=== PATIENT | female | born 1980 | race Caucasian/White ===

== ENCOUNTER 2023-10-28 16:34 | Outpatient (CLI) | payer OTHER, SELFPAY | END 2023-10-28 16:35 | disposition home or self-care (01) | LOC: LKVREF 16:37 | PROVIDERS: PCP Physician Assistant Medical; Visit Provider Physician Assistant Medical | DX: I16.0 Hypertensive urgency (principal); E11.9 Type 2 diabetes mellitus without complications | CPT/HCPCS: 84443; 87086 ==

== ENCOUNTER 2023-11-18 14:32 | Outpatient (CLI) | payer OTHER, SELFPAY | END 2023-11-18 14:33 | disposition home or self-care (01) | LOC: RAD 14:33 | PROVIDERS: PCP Physician Assistant Medical; Visit Provider Physician Assistant Medical | DX: I10 Essential (primary) hypertension (principal); I51.7 Cardiomegaly | CPT/HCPCS: 93306 ==

== ENCOUNTER 2024-05-20 07:54 | Outpatient (CLI) | payer OTHER, SELFPAY | END 2024-05-20 07:55 | disposition home or self-care (01) | PROVIDERS: PCP Physician Assistant Medical; Visit Provider Physician Assistant Medical | DX: E11.9 Type 2 diabetes mellitus without complications (principal); I10 Essential (primary) hypertension; E66.01 Morbid (severe) obesity due to excess calories; Z68.43 Body mass index [BMI] 50.0-59.9, adult | CPT/HCPCS: 80061; 82043; 82570; 82607 ==

== ENCOUNTER 2024-08-24 15:57 | Outpatient (CLI) | payer OTHER, SELFPAY | END 2024-08-24 15:58 | disposition home or self-care (01) | PROVIDERS: PCP Physician Assistant Medical; Visit Provider Physician Assistant Medical | DX: I10 Essential (primary) hypertension (principal); E11.9 Type 2 diabetes mellitus without complications; E66.01 Morbid (severe) obesity due to excess calories; Z68.43 Body mass index [BMI] 50.0-59.9, adult | CPT/HCPCS: 80048; 82043; 82570 ==

== ENCOUNTER 2025-04-12 13:42 | Outpatient (CLI) | payer OTHER, SELFPAY ==
--- NOTE | 2025-04-12 14:00 | CRLHL7_ITS ---
For Patients: As a result of the Century Cures Act, medical imaging exams and procedure reports are released immediately into your electronic medical record. You may view this report before your referring provider. If you have questions, please contact your health care provider. BILATERAL DIGITAL SCREENING MAMMOGRAM WITH COMPUTER-AIDED DETECTION AND TOMOSYNTHESIS CLINICAL HISTORY: : Routine screening exam. COMPARISON: None TECHNIQUE: Digital mammogram in CC and MLO projections including computer-aided detection (CAD). Tomosynthesis was used in this interpretation. BREAST COMPOSITION: There are scattered areas of fibroglandular density. FINDINGS: RIGHT Breast: No suspicious findings LEFT Breast: Focal nodular density in the upper-outer quadrant behind the nipple 2 cm from the nipple. IMPRESSION: LEFT breast asymmetry/mass. RECOMMENDATIONS: Left breast ultrasound recommended. The [facility] will contact the patient. BI-RADS Category 0: Incomplete: Need Additional Imaging Evaluation Dictated by Aníbal Almanza MD @ 04/13/2025 12:01:40 PM Dictated by: Aníbal Almanza MD @ 04/13/2025 12:01:45 (Electronically Signed)
== END 2025-04-12 13:43 | disposition home or self-care (01) ==
LOC: MAMMO 13:43
PROVIDERS: PCP Physician Assistant Medical; Visit Provider Physician Assistant Medical
DX: Z12.31 Encounter for screening mammogram for malignant neoplasm of breast (principal); N63.10 Unspecified lump in the right breast, unspecified quadrant
CPT/HCPCS: 77063; 77067

== ENCOUNTER 2025-04-16 07:57 | Outpatient (CLI) | payer OTHER, SELFPAY ==
--- NOTE | 2025-04-16 08:15 | CRLHL7_ITS ---
For Patients: As a result of the Cures Act, medical imaging exams and procedure reports are released immediately into your electronic medical record. You may view this report before your referring provider. If you have questions, please contact your health care provider. LEFT BREAST ULTRASOUND CLINICAL HISTORY: LEFT breast mass/asymmetry. COMPARISON: 04/12/2025. TECHNIQUE: Real-time ultrasound imaging of LEFT breast with imaging documentation. FINDINGS: Targeted sonogram LEFT breast upper outer quadrant 2-3 o`clock 2 cm from the nipple corresponding to the mammogram performed. Normal fibroglandular tissue is present. No solid mass or shadowing lesion. No fibrocystic change. Mild incidental benign multi duct ectasia. IMPRESSION: No suspicious findings. No evidence of malignancy. RECOMMENDATIONS: Routine screening mammography. A lay language report of this examination will be provided to the patient. BI-RADS Category 2: Benign Dictated by Aníbal Almanza MD @ 04/16/2025 8:38:14 AM jj/Dictated by: Aníbal Almanza MD @ 04/16/2025 8:38:00 AM (Electronically Signed)
--- OUTSIDE RECORDS SUMMARY | 2025-04-17 00:29 | XMS_ITS | Encounter Summary ---
Author Organization [facility] Address [address] [place] [address]. [place] [address] Care Team Providers Care Hoop Bending Machine Operator Name Role Phone Kodak Muro PA-C Primary Care Provider [phone] Kodak Muro-C Unavailable [phone] Kodak Muro-C Unavailable [phone] Sobia Sahu APRN HOT BRAIDER Unavailable [phone] Kodak Muro PA-C Unavailable [phone] Sobia Sahu APRN HOT BRAIDER Unavailable [phone] Paloma Lindsay PA-C Unavailable Kodak Muro PA-C Unavailable [phone] Kodak Muro PA-C Unavailable [phone] Reason for Visit * Reason Onset Date Comments Erroneous encounter-disregard 06/04/2017 li sinopril (PRINIVIL/ZESTRIL) 10 MG tablet Encounter Details Date Type Department Care Team (Late st Contact Info) Description 06/04/2017 [place] [id number] [facility], [address] [place] [address] Kodak Muro PA-C [address] [place] [address] Erroneous encounter-disregard (lisinopril (PRINIVIL/ZESTRIL) 10 MG tablet) Social History Tobacco Use Types Packs/Day Years Used Date Smoking Tobacco: Former Cigarettes Q uit: 02/28/2000 Smokeless Tobacco: Never Alcohol Use Standard Drinks/Week Comments Yes 0 (1 standard drink = 0.6 oz pur e alcohol) rare Comments No Sex and Gender Information Value Date Recorded Sex Assigned at Female 03/28/2021 1:15 PM CDT Legal Sex Female 4:46 AM CUSTOMER SUPPORT TECHNICIAN Gender Identity Female 03/28/2021 1:15 PM CDT Sexual Orientation Straight 03/28/2021 1: 15 PM CDT documented as of this encounter Miscellaneous Notes * Telephone Encounter - Valeri Hammer - 06/04/2017 10:41 AM CDT 3 month Supply with 1 RF sent 05/10/17. lisinopril (PRINIVIL/ZESTRIL) 10 MG tablet Last Written Prescription Date: 05/10/17 Last Fill Quantity: 90, # refills: 1 Last Office Visit with [facility], [facility] or [facility] prescribing provider: 05/10/2017 Fax sent to pharm informing above. Please disregard request. Valeri Hammer, XRR[facility] June 04, 2017 10:43 AM documented in this encounter Plan of Treatment Not on file documented as of this encounter Visit Diagnoses Diagnosis Essential hypertension Unspecified essential hypertension documented in this encounter Care Teams Hoop Bending Machine Operator Relationship Specialty Start Date End Date Kodak Muro PA-C PCP - General Physician Client Care Manager - Medical 02/20/16 Kodak Muro PA-C [address] [address] PCP - Assigned PCP 01/30/15 12/23/18 Kodak Muro PA-C [address] [address] Assigned PCP 01/30/15 02/14/19 Sobia Sahu APRN HOT BRAIDER [address] [place] [address] Assigned PCP 02/15/19 02/13/20 Kodak Muro PA-C [address] [place] [address] Assigned PCP 02/14/20 02/11/21 Sobia Sahu APRN HOT BRAIDER [address] [place] [address] Assigned PCP 02/12/21 02/10/22 Paloma Lindsay PA-C [address] [place] [address] Assigned Surgical Provider 04/02/21 09/28/22 Kodak Muro PA-C [address] [place] [address] Assigned PCP 02/11/22 10/05/22 Kodak Muro PA-C [address] [place] [address] Assigned PCP 12/15/22 02/10/23 documented as of this encounter
--- OUTSIDE RECORDS SUMMARY | 2025-04-17 00:29 | XMS_ITS | Encounter Summary ---
Author Organization [facility] Address [address] [place] [address]. [place] [address] Care Team Providers Care Plate Furnace Operator Name Role Phone Kodak Muro PA-C Primary Care Provider [phone] Sobia Sahu APRN INSIGHT LEADER Unavailable [phone] Kodak Muro PA-C Unavailable [phone] Sobia Sahu APRN INSIGHT LEADER Unavailable [phone] Paloma LindsayC Unavailable [phone] Kodak Muro PA-C Unavailable [phone] Kodak MuroC Unavailable [phone] Reason for Visit * Reason Onset Date Comments Medication Refill 04/13/2019 phentermine (A DIPEX-P) 37.5 MG capsule Encounter Details Date Type Department Care Team (Late st Contact Info) Description 04/11/[address], [address] [place] [address] Sobia Sahu APRN INSIGHT LEADER [address] [place] [address] Medication Refill (phentermine (ADIPEX-P) 37.5 MG capsule) Social History Tobacco Use Types Packs/Day Years Used Date Smoking Tobacco: Former Cigarettes Q uit: 02/28/2000 Smokeless Tobacco: Never Alcohol Use Standard Drinks/Week Comments Yes 0 (1 standard drink = 0.6 oz pur e alcohol) rare PHQ-2 Answer Date Recorded PHQ-2 Score 0 10/29/2018 Comments No Sex and Gender Information Value Date Recorded Sex Assigned at Female 03/28/2021 1:15 PM CDT Legal Sex Female 4:46 AM PET SUPPLIES SALESPERSON Gender Identity Female 03/28/2021 1:15 PM CDT Sexual Orientation Straight 03/28/2021 1: 15 PM CDT documented as of this encounter Miscellaneous Notes * Telephone Encounter - Caridad Figueroa MA - 04/13/2019 10:27 AM CDT Rx faxed to [facility] pharmacy [place]. Rx placed in box at Nurses station. Caridad Figueroa MA * Telephone Encounter - Sobia Sahu APRN CNP - 04/13/2019 8:43 AM CDT Rx signed and in my outbasket. Sobia Sahu CNP * Telephone Encounter - Valeri Hammer - 04/13/2019 8:30 AM CDT Images from the original note were not included. phentermine (ADIPEX-P) 37.5 MG capsule Last Written Prescription Date: 03/09/19 Last Fill Quantity: 30, # refills: 0 Last Office Visit with [facility], [facility] or [facility] prescribing provider: 03/09/2019 Strong Return in about 3 months (around 06/09/2019) for weight loss . Future Office visit: Wt Readings from Last 3 Encounters: 03/09/19 142.4 kg (314 lb) 02/09/19 145.6 kg (320 lb 14.4 oz) 05/10/17 134.3 kg (296 lb) BP Readings from Last 3 Encounters: 03/09/19 116/84 02/09/19 142/80 05/10/17 134/80 Routing refill request to provider for review/approval because: Drug not on the [facility], [facility] or [facility] refill protocol or controlled substance CHUCK Jones April 13, 2019 8:30 AM documented in this encounter Plan of Treatment Not on file documented as of this encounter Visit Diagnoses Diagnosis Morbid obesity, unspecified obesity type (H) documented in this encounter Care Teams Plate Furnace Operator Relationship Specialty Start Date End Date Kodak Muro PA-C PCP - General Physician Digestion Operator - Medical 02/20/16 Sobia Sahu APRN INSIGHT LEADER [address] [place] [address] Assigned PCP 02/15/19 02/13/20 Kodak Muro PA-C [address] [address] Assigned PCP 02/14/20 02/11/21 Sobia Sahu APRN INSIGHT LEADER [address] [address] Assigned PCP 02/12/21 02/10/22 Paloma Lindsay PA-C [address] [place] [address] Assigned Surgical Provider 04/02/21 09/28/22 Kodak Muro PA-C [address] [address] Assigned PCP 02/11/22 10/05/22 Kodak Muro PA-C [address] [address] Assigned PCP 12/15/22 02/10/23 documented as of this encounter
--- OUTSIDE RECORDS SUMMARY | 2025-04-17 00:29 | XMS_ITS | Encounter Summary ---
Author Organization [facility] Address [address] [place] [address] Care Team Providers Care Hotbed Lever Operator Name Role Phone Kodak Muro PA-C Primary Care Provider [phone] Kodak Muro PA-C Unavailable + Kun Murois PA-C Unavailable + Sobia Sahu APRN COMPUTER PROGRAMMER CHIEF Unavailable + Kodak Muro PA-C Unavailable + Sobia Sahu APRN COMPUTER PROGRAMMER CHIEF Unavailable + Paloma Lindsay PA-C Unavailable [phone] Kodak Muro PA-C Unavailable + Bhaskar Kodak PA-C Unavailable + Reason for Visit * Reason Comments Ultrasound twins, di di Encounter Details Date Type Department Care Team (Late st Contact Info) Description 10/16/[address] 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 Gender Identity Female 03/28/2021 1:15 PM CDT Sexual Orientation Straight 03/28/2021 1: 15 PM CDT documented as of this encounter Plan of Treatment Not on file documented as of this encounter Visit Diagnoses Not on filedocumented in this encounter Care Teams Hotbed Lever Operator Relationship Specialty Start Date End Date Kodak Muro PA-C PCP - General Physician Aircraft Cylinder Mechanic - Medical 02/20/16 Kodak Muro PA-C [address] [place] [address] PCP - Assigned PCP 01/30/15 12/23/18 Kodak Muro PA-C [address] [place] [address] Assigned PCP 01/30/15 02/14/19 Sobia Sahu APRN COMPUTER PROGRAMMER CHIEF [address] [place] [address] Assigned PCP 02/15/19 02/13/20 Kodak Muro PA-C [address] [place] [address] Assigned PCP 02/14/20 02/11/21 Sobia Sahu APRN COMPUTER PROGRAMMER CHIEF [address] [place] [address] Assigned PCP 02/12/21 02/10/22 Paloma Lindsay PA-C [address] [address] Assigned Surgical Provider 04/02/21 09/28/22 Kodak Muro PA-C [address] [address] Assigned PCP 02/11/22 10/05/22 Kodak Muro PA-C [address] [address] Assigned PCP 12/15/22 02/10/23 documented as of this encounter
--- OUTSIDE RECORDS SUMMARY | 2025-04-17 00:29 | XMS_ITS | Encounter Summary ---
Author Organization [facility] Address [address] [place] [address] Care Team Providers Care Hospital Administrator Name Role Phone Kodak Muro PA-C Primary Care Provider [phone] Kodak Muro PA-C Unavailable [phone] Kodak Muro PA-C Unavailable [phone] Sobia Sahu APRN FUSING FURNACE LOADER Unavailable + [phone] Kun Murois PA-C Unavailable [phone] Sobia Sahu APRN FUSING FURNACE LOADER Unavailable + Paloma Lindsay PA-C Unavailable [phone] Kun Murois PA-C Unavailable [phone] Kun Murois PA-C Unavailable [phone] Encounter Details Date Type Department Care Team (Late st Contact Info) Description 04/09/2017 MyC Medical Advice [facility] [id number] [place] [address], [address] [place] [address] Caridad Figueroa MA Social History Tobacco Use Types Packs/Day Years Used Date Smoking Tobacco: Former Cigarettes Q uit: 02/28/2000 Smokeless Tobacco: Never Alcohol Use Standard Drinks/Week Comments Yes 0 (1 standard drink = 0.6 oz pur e alcohol) rare Comments No Sex and Gender Information Value Date Recorded Sex Assigned at Female 03/28/2021 1:15 PM CDT Legal Sex Female 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 AIDE Gender Identity Female 03/28/2021 1:15 PM CDT Sexual Orientation Straight 03/28/2021 1: 15 PM CDT documented as of this encounter Plan of Treatment Not on file documented as of this encounter Visit Diagnoses Not on filedocumented in this encounter Care Teams Hospital Administrator Relationship Specialty Start Date End Date Kodak Muro PA-C PCP - General Physician Press And Blow Machine Tender - Medical 02/20/16 Kodak Muro PA-C [address] [place] [address] PCP - Assigned PCP 01/30/15 12/23/18 Kodak Muro PA-C [address] [place] [address] Assigned PCP 01/30/15 02/14/19 Sobia Sahu APRN FUSING FURNACE LOADER [address] [place] [address] Assigned PCP 02/15/19 02/13/20 Kodak Muro PA-C [address] [place] [address] Assigned PCP 02/14/20 02/11/21 Sobia Sahu APRN FUSING FURNACE LOADER [address] [place], [place] [address] Assigned PCP 02/12/21 02/10/22 Paloma Lindsay PA-C [address] [place] [address] Assigned Surgical Provider 04/02/21 09/28/22 Kodak Muro PA-C [address] [address] Assigned PCP 02/11/22 10/05/22 Kodak Muro PA-C [address] [address] Assigned PCP 12/15/22 02/10/23 documented as of this encounter
--- OUTSIDE RECORDS SUMMARY | 2025-04-17 00:29 | XMS_ITS | Encounter Summary ---
Author Organization [facility] Address [address] [place] [address]. [place] [address] Care Team Providers Care Baked Goods Stock Clerk Name Role Phone Kodak Muro PA-C Primary Care Provider [phone] Sobia Sahu APRN RAW PRODUCTS DIRECTOR Unavailable [phone] Kodak Muro PA-C Unavailable [phone] Sobia Sahu APRN RAW PRODUCTS DIRECTOR Unavailable [phone] Paloma LindsayC Unavailable [phone] Kodak Muro PA-C Unavailable [phone] Kodak MuroC Unavailable [phone] Reason for Visit * Reason Onset Date Comments Medication Refill 05/14/2019 phentermine (A DIPEX-P) 37.5 MG capsule Encounter Details Date Type Department Care Team (Late st Contact Info) Description 05/14/[address], [address] [place] [address] Sobia Sahu APRN RAW PRODUCTS DIRECTOR [address] [place] [address] Medication Refill (phentermine (ADIPEX-P) 37.5 [...] PM CDT Legal Sex Female 4:46 AM SOLDER CREAM MAKER Gender Identity Female 03/28/2021 1:15 PM CDT Sexual Orientation Straight 03/28/2021 1: 15 PM CDT documented as of this encounter Miscellaneous Notes * Telephone Encounter - Chinyere Mays CMA - 05/15/2019 11:56 AM CDT Called patient to let her know that her Rx was faxed to her pharmacy. Chinyere Mays MA * Telephone Encounter - Sobia Sahu APRN CNP - 05/15/2019 8:08 AM CDT Please fax Rx. Sobia Sahu CNP * Telephone Encounter - Valeri Hammer - 05/14/2019 1:26 PM CDT Images from the original note were not included. phentermine (ADIPEX-P) 37.5 MG capsule Last Written Prescription Date: 04/13/19 Last Fill Quantity: 30, # refills: 0 Last Office Visit with [facility], P or [facility] prescribing provider: 03/09/2019 Strong Return in about 3 months (around 06/09/2019) for weight loss . Future Office visit: Next 5 appointments (look out 90 days) Jun 01, 2019 10:00 AM CDT SHORT with Sobia Sahu APRN CNP [facility] [address] [place] [address], [address] [facility] [address] Wt Readings from Last 3 Encounters: 03/09/19 142.4 kg (314 lb) 02/09/19 145.6 kg (320 lb 14.4 oz) 07/21/17 134.3 kg (296 lb) BP Readings from Last 3 Encounters: 03/09/19 116/84 02/09/19 142/80 05/10/17 134/80 Routing refill request to provider for review/approval because: Drug not on the [facility], [facility] or [facility] refill protocol or controlled substance CHUCK Jones May 14, 2019 1:26 PM documented in this encounter Plan of Treatment Not on file documented as of this encounter Visit Diagnoses Diagnosis Morbid obesity, unspecified obesity type (H) documented in this encounter Care Teams Baked Goods Stock Clerk Relationship Specialty Start Date End Date Kodak Muro PA-C PCP - General Physician Manager Ecommerce - Medical 02/20/16 Sobia Sahu APRN RAW PRODUCTS DIRECTOR [address] [address] Assigned PCP 02/15/19 02/13/20 Kodak Muro PA-C [address] [address] Assigned PCP 02/14/20 02/11/21 Sobia Sahu APRN RAW PRODUCTS DIRECTOR [address] [address] Assigned PCP 02/12/21 02/10/22 Paloma Lindsay PA-C [address] [place] [address] Assigned Surgical Provider 04/02/21 09/28/22 Kodak Muro PA-C [address] [address] Assigned PCP 02/11/22 10/05/22 Kodak Muro PA-C [address] [address] Assigned PCP 12/15/22 02/10/23 documented as of this encounter
--- OUTSIDE RECORDS SUMMARY | 2025-04-17 00:29 | XMS_ITS | Encounter Summary ---
Author Organization [facility] Address [address] [place] [address] Care Team Providers Care Atmospheric Technician Name Role Phone Kodak Muro PA-C Primary Care Provider [phone] Kodak Muro PA-C Unavailable + Kodak Muro PA-C Unavailable + Sobia Sahu APRN RACK LOADER Unavailable + Kodak Muro PA-C Unavailable + Sobia Sahu APRN RACK LOADER Unavailable + Paloma Lindsay PA-C Unavailable [phone] Kodak Muro PA-C Unavailable + Kodak Muro PA-C Unavailable + Encounter Details Date Type Department Care Team (Late st Contact Info) Description 08/21/2012 MyC Medical Advice [address] [address] Radha Chavira MD [address] [place] [address] Social History Tobacco Use Types Packs/Day Years Used Date Smoking Tobacco: Former Cigarettes Q uit: 02/28/2000 Smokeless Tobacco: Never Alcohol Use Standard Drinks/Week Comments Yes 0 (1 standard drink = 0.6 oz pur e alcohol) rare Comments No Sex and Gender Information Value Date Recorded Sex Assigned at Female 03/28/2021 1:15 PM CDT Legal Sex Female 4:46 AM AUTO MECHANICS TEACHER Gender Identity Female 03/28/2021 1:15 PM CDT Sexual Orientation Straight 03/28/2021 1: 15 PM CDT documented as of this encounter Plan of Treatment Not on file documented as of this encounter Visit Diagnoses Not on filedocumented in this encounter Care Teams Atmospheric Technician Relationship Specialty Start Date End Date Kodak Muro PA-C PCP - General Physician Cardiology Nurse Practitioner - Medical 02/20/16 Kodak Muro PA-C [address] [place] [address] PCP - Assigned PCP 01/30/15 12/23/18 Kodak Muro PA-C [address] [place] [address] Assigned PCP 01/30/15 02/14/19 Sobia Sahu APRN RACK LOADER [address] [place] [address] Assigned PCP 02/15/19 02/13/20 Kodak Muro PA-C [address] [place] [address] Assigned PCP 02/14/20 02/11/21 Sobia Sahu APRN RACK LOADER [address] [place] [address] Assigned PCP 02/12/21 02/10/22 Paloma Lindsay PA-C [address] [place] [address] Assigned Surgical Provider 04/02/21 09/28/22 Kodak Muro PA-C [address] [address] Assigned PCP 02/11/22 10/05/22 Kodak Muro PA-C [address] [address] Assigned PCP 12/15/22 02/10/23 documented as of this encounter
--- OUTSIDE RECORDS SUMMARY | 2025-04-17 00:30 | XMS_ITS | Encounter Summary ---
Author Organization [facility] Address [address] [place] [address] Care Team Providers Care Software Applications Designer Name Role Phone Kodak Muro PA-C Primary Care Provider [phone] Kodak Muro-C Unavailable [phone] Sobia Sahu APRN SPARE PERSON Unavailable [phone] Paloma Lindsay PA-C Unavailable [phone] Kodak Muro PA-C Unavailable [phone] Kodak Muro PA-C Unavailable [phone] Encounter Details Date Type Department Care Team (Late st Contact Info) Description 12/05/2020 MyC Medical Advice [address] [address] Marybeth Antony Social History Tobacco Use Types Packs/Day Years Used Date Smoking Tobacco: Former Cigarettes Q uit: 02/28/2000 Smokeless Tobacco: Never Alcohol Use Standard Drinks/Week Comments Not Currently 0 (1 standard drink = 0.6 oz pur e alcohol) rare PHQ-2 Answer Date Recorded PHQ-2 Score 0 02/11/2020 Comments No Sex and Gender Information Value Date Recorded Sex Assigned at Female 03/28/2021 1:15 PM CDT Legal Sex Female 4:46 AM ROTATIONAL MOULDING OPERATOR Gender Identity Female 03/28/2021 1:15 PM CDT Sexual Orientation Straight 03/28/2021 1: 15 PM CDT documented as of this encounter Plan of Treatment Not on file documented as of this encounter Visit Diagnoses Not on filedocumented in this encounter Care Teams Software Applications Designer Relationship Specialty Start Date End Date Kodak Muro PA-C PCP - General Physician Tool Grinding Technician - Medical 02/20/16 Kodak Muro PA-C [address] [address] Assigned PCP 02/14/20 02/11/21 Sobia Sahu APRN CNP [address] [address] Assigned PCP 02/12/21 02/10/22 Paloma Lindsay PA-C [address] [place] [address] Assigned Surgical Provider 04/02/21 09/28/22 Kodak Muro PA-C [address] [address] Assigned PCP 02/11/22 10/05/22 Kodak Muro PA-C [address] [address] Assigned PCP 12/15/22 02/10/23 documented as of this encounter
--- OUTSIDE RECORDS SUMMARY | 2025-04-17 00:30 | XMS_ITS | Clinical Summary ---
Author Organization [facility] Address [address] [place] [address] Care Team Providers Care Accountant Systems Name Role Phone Kodak Muro PA-C Primary Care Provider [phone] Allergies Active Allergy Reactions Criticality Noted Date Comments Hydrocodone-Acetaminophen 02/27/2007 Black out, migraine Medications Multiple Vitamins-Mineral s (WOMENS MULTI PO) Take 1 tablet by mouth daily Active lisinopril (ZESTRIL) 10 MG tabletIndication s:Essential hypertension Take 1 tablet (10 mg) by mouth daily APPOINTMENT AND LABS NEEDED- PLEASE CALL CLINIC TO SCHEDULE 15 tablet 1 Active Active Problems Problem Noted Date Diagnosed Date Essential hypertension 06/28/2017 Morbid obesity, unspecified obesity type 017 Elevated blood pressure read ing without diagnosis of hypertension 02/20/2016 Hyperlipidemia LDL goal <160 08/16/2012 Immunizations Immunization Administration Dates Next Due Hepatitis B, Adult (Energix- B/Recombivax HB) 09/04/2006,08/28/2005 Influenza (H1N1) 09/12/2009 Influenza (IIV3) PF 07/07/2014,08/16/2012,2009 Influenza Vaccine >6 months,quad, PF 08/30/2019 Influenza Vaccine, 6+MO IM ( QUADRIVALENT W/PRESERVATIVES) 08/30/2019 Rhogam 10/06/2011 TD,PF 7+ (Tenivac) 08/28/2005 TDAP Vaccine (Adacel) 10/05/2011,08/17/2010 Family History Medical History Relation Comments Family History Negative Brother Deep Vein Thrombosis Father Family History Negative Father Family History Negative Maternal Grandfather Obesity Maternal Grandfather Family History Negative Maternal Grandmother Family History Negative Mother Family History Negative Paternal Grandfather Family History Negative Paternal Grandmother Obesity Paternal Grandmother Breast Cancer No family hx of Cancer - colorectal No family hx of Relation Status Comments Brother Father Maternal Grandfather Maternal Grandmother Mother Paternal Grandfather Paternal Grandmother Social History Tobacco Use Types Packs/Day Years Used Date Smoking Tobacco: Former Cigarettes Q uit: 02/28/2000 Smokeless Tobacco: Never Alcohol Use Standard Drinks/Week Comments Not Currently 0 (1 standard drink = 0.6 oz pur e alcohol) rare PHQ-2 Answer Date Recorded PHQ-2 Score 0 02/11/2020 Adolescent Education Answer Date Record ed Getting School Help Needed Not on file 08/06 Comments No Sex and Gender Information Value Date Recorded Sex Assigned at Female 03/28/2021 1:15 PM CDT Legal Sex Female 4:46 AM LEAD PROGRAMMER ANALYST Gender Identity Female 03/28/2021 1:15 PM CDT Sexual Orientation Straight 03/28/2021 1: 15 PM CDT Last Filed Vital Signs Vital Sign Reading Time Taken Comments Blood Pressure 126/88 09/29/2019 3:44 PM LEAD PROGRAMMER ANALYST Pulse 80 09/29/2019 3:44 PM LEAD PROGRAMMER ANALYST Temperature 36.7 C (98 F) 09/29/2019 3:44 PM LEAD PROGRAMMER ANALYST Respiratory Rate 20 09/29/2019 3:44 PM LEAD PROGRAMMER ANALYST Oxygen Saturation 97% 06/01/2019 10:13 AM CDT Inhaled Oxygen Concentration - - Weight 135.6 kg (299 lb) 03/28/2021 2:19 PM CDT Height 167.6 cm (5' 6) 03/28/2021 2:19 PM CDT Body Mass Index 48.26 03/28/2021 2:19 PM CDT Plan of Treatment Not on file Insurance [facility] [place] Care Teams Accountant Systems Relationship Specialty Start Date End Date Kodak Muro PA-C PCP - General Physician Fluorescent Lamp Replacer - Medical 02/20/16
--- OUTSIDE RECORDS SUMMARY | 2025-04-17 00:30 | XMS_ITS | Encounter Summary ---
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 Gender Identity Female 03/28/2021 1:15 PM CDT Sexual Orientation Straight 03/28/2021 1: 15 PM CDT documented as of this encounter Plan of Treatment Not on file documented as of this encounter Visit Diagnoses Not on filedocumented in this encounter Care Teams Fabric Cutter Relationship Specialty Start Date End Date Kodak Muro PA-C PCP - General Physician Billing Control Clerk - Medical 02/20/16 Sobia Sahu APRN CNP [id number] [place] [id number] Assigned PCP 02/12/21 02/10/22 Paloma Lindsay PA-C [address] W44BEN SAAB [address] Assigned Surgical Provider 04/02/21 09/28/22 Kodak Muro PA-C 56756 [address] [address] Assigned PCP 02/11/22 10/05/22 Kodak Muro PA-C 79445 [address] [address] [address] Assigned PCP 12/15/22 02/10/23 documented as of this encounter
--- OUTSIDE RECORDS SUMMARY | 2025-04-17 00:30 | XMS_ITS | Encounter Summary ---
Author Organization [facility] Address [address] [place] [address] Care Team Providers Care Paper Final Inspector Name Role Phone Kodak Muro PA-C Primary Care Provider [phone] Sobia Sahu APRN COMMERCIAL LINES UNDERWRITER Unavailable [phone] Kodak MuroC Unavailable [phone] Sobia Sahu APRN COMMERCIAL LINES UNDERWRITER Unavailable [phone] Paloma Lindsay-C Unavailable [phone] Kodak MuroC Unavailable [phone] Kodak Muro-C Unavailable [phone] Encounter Details Date Type Department Care Team (Late st Contact Info) Description 02/01/2020 MyC Medical Advice [address] [address] Greta Duff Social History Tobacco Use Types Packs/Day Years [...] PM CDT 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 Gender Identity Female 03/28/2021 1:15 PM CDT Sexual Orientation Straight 03/28/2021 1: 15 PM CDT documented as of this encounter Plan of Treatment Not on file documented as of this encounter Visit Diagnoses Not on filedocumented in this encounter Care Teams Paper Final Inspector Relationship Specialty Start Date End Date Kodak Muro PA-C PCP - General Physician Cook Helper Preserves - Medical 02/20/16 Sobia Sahu APRN COMMERCIAL LINES UNDERWRITER [address] [place] [address] Assigned PCP 02/15/19 02/13/20 Kodak Muro PA-C [address] [place] [address] Assigned PCP 02/14/20 02/11/21 Sobia Sahu APRN COMMERCIAL LINES UNDERWRITER [address] [place] [address] Assigned PCP 02/12/21 02/10/22 Paloma Lindsay PA-C [address] [place] [address] Assigned Surgical Provider 04/02/21 09/28/22 Kodak Muro PA-C [address] [place] [address] Assigned PCP 02/11/22 10/05/22 Kodak Muro PA-C [address] [place] [address] Assigned PCP 12/15/22 02/10/23 documented as of this encounter
--- OUTSIDE RECORDS SUMMARY | 2025-04-17 00:30 | XMS_ITS | Encounter Summary ---
Author Organization [facility] Address [address] [place] [address]. [place] [address] Care Team Providers Care Electrician'S Assistant Name Role Phone Kodak Muro PA-C Primary Care Provider [phone] Sobia Sahu APRN BLASTING HELPER Unavailable [phone] Paloma Lindsay PA-C Unavailable [phone] Kodak Muro PA-C Unavailable [phone] Kodak Muro PA-C Unavailable [phone] Reason for Visit * Reason Comments Medication Refill Encounter Details Date Type Department Care Team (Late st Contact Info) Description 05/06/2021 Refill [facility] [address] [facility], [address] [place] [address] Kodak Muro PA-C [address] [place] [address] Medication Refill Social History Tobacco Use Types Packs/Day Years [...] PM CDT 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 Thanks! documented in this encounter Plan of Treatment Not on file documented as of this encounter Visit Diagnoses Diagnosis Essential hypertension Unspecified essential hypertension documented in this encounter Care Teams Electrician'S Assistant Relationship Specialty Start Date End Date Kodak Muro PA-C PCP - General Physician Dimension Mill Worker - Medical 02/20/16 Sobia Sahu APRN BLASTING HELPER [id number] [place] [address] Assigned PCP 02/12/21 02/10/22 Paloma Lindsay PA-C [address] [place] [address] Assigned Surgical Provider 04/02/21 09/28/22 Kodak Muro PA-C 38222 [address] [address] Assigned PCP 02/11/22 10/05/22 Kodak Muro PA-C [address] [place] [address] Assigned PCP 12/15/22 02/10/23 documented as of this encounter
--- OUTSIDE RECORDS SUMMARY | 2025-04-17 00:30 | XMS_ITS | Encounter Summary ---
Author Organization [facility] Address [address] [place] [address] Care Team Providers Care Road Machinery Inspector Name Role Phone Kodak Muro PA-C Primary Care Provider [phone] Sobia Sahu APRN PERFORMING ARTIST Unavailable [phone] Kodak MuroC Unavailable [phone] Sobia Sahu APRN PERFORMING ARTIST Unavailable [phone] Paloma Lindsay-C Unavailable [phone] Kodak Muro-C Unavailable [phone] Kodak Muro-C Unavailable [phone] Encounter Details Date Type Department Care Team (Late st Contact Info) Description 02/01/2020 MyC Medical Advice [address], [address] [place] [address] Greta Duff Social History Tobacco Use Types [...] PM CDT 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 Gender Identity Female 03/28/2021 1:15 PM CDT Sexual Orientation Straight 03/28/2021 1: 15 PM CDT documented as of this encounter Plan of Treatment Not on file documented as of this encounter Visit Diagnoses Not on filedocumented in this encounter Care Teams Road Machinery Inspector Relationship Specialty Start Date End Date Kodak Muro PA-C PCP - General Physician Stone Polisher Hand - Medical 02/20/16 Sobia Sahu APRN PERFORMING ARTIST [address] [place] [address] Assigned PCP 02/15/19 02/13/20 Kodak Muro PA-C [address] [place] [address] Assigned PCP 02/14/20 02/11/21 Sobia Sahu APRN PERFORMING ARTIST [address] [place] [address] Assigned PCP 02/12/21 02/10/22 Paloma Lindsay PA-C [address] [place] [address] Assigned Surgical Provider 04/02/21 09/28/22 Kodak Muro PA-C [address] [place] [address] Assigned PCP 02/11/22 10/05/22 Kodak Muro PA-C [address] [place] [address] Assigned PCP 12/15/22 02/10/23 documented as of this encounter
--- OUTSIDE RECORDS SUMMARY | 2025-04-17 00:30 | XMS_ITS | Encounter Summary ---
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 Gender Identity Female 03/28/2021 1:15 PM CDT Sexual Orientation Straight 03/28/2021 1: 15 PM CDT documented as of this encounter Plan of Treatment Not on file documented as of this encounter Visit Diagnoses Not on filedocumented in this encounter Care Teams Sewing Supervisor Relationship Specialty Start Date End Date Kodak Muro PA-C PCP - General Physician Low Emission Automobile Designer - Medical 02/20/16 Sobia Sahu APRN CNP 25933 [address] [address] Assigned PCP 02/12/21 02/10/22 Paloma Lindsay PA-C [address] W44BEN SAAB [address] Assigned Surgical Provider 04/02/21 09/28/22 Kodak Muro PA-C 32892 [place] [address] Assigned PCP 02/11/22 10/05/22 Kodak Muro PA-C 84190 [address] [address] Assigned PCP 12/15/22 02/10/23 documented as of this encounter
--- OUTSIDE RECORDS SUMMARY | 2025-04-17 00:30 | XMS_ITS | Encounter Summary ---
Author Organization [facility] Address [address] [place] [address]. [place] [address] Care Team Providers Care Trade Facilitator Name Role Phone Kodak Muro PA-C Primary Care Provider [phone] Sobia Sahu APRN PRECISION FILER HAND Unavailable [phone] Paloma Lindsay PA-C Unavailable [phone] Kodak Muro PA-C Unavailable [phone] Kodak Muro PA-C Unavailable [phone] Encounter Details Date Type Department Care Team (Late st Contact Info) Description 03/28/2021 MyC Medical Advice [facility] [address] [place] [address] Paloma Lindsay PA-C [address] [place] [address] [id number] Social History Tobacco Use Types Packs/Day Years [...] PM CDT 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 Gender Identity Female 03/28/2021 1:15 PM CDT Sexual Orientation Straight 03/28/2021 1: 15 PM CDT documented as of this encounter Plan of Treatment Not on file documented as of this encounter Visit Diagnoses Not on filedocumented in this encounter Care Teams Trade Facilitator Relationship Specialty Start Date End Date Kodak Muro PA-C PCP - General Physician Hydraulic Press Tender - Medical 02/20/16 Sobia Sahu APRN PRECISION FILER HAND [address] [place] [address] Assigned PCP 02/12/21 02/10/22 Paloma Lindsay PA-C [address] [place] [address] Assigned Surgical Provider 04/02/21 09/28/22 Kodak Muro PA-C [address] [address] [place], [place] [address] Assigned PCP 02/11/22 10/05/22 Kodak Muro PA-C [address] [place] [address] Assigned PCP 12/15/22 02/10/23 documented as of this encounter
--- OUTSIDE RECORDS SUMMARY | 2025-04-17 00:30 | XMS_ITS | Encounter Summary ---
Author Organization [facility] Address [address] [place] [address] Care Team Providers Care Production Designer Name Role Phone Kodak Muro PA-C Primary Care Provider [phone] Kodak Muro-C Unavailable [phone] Sobia Sahu APRN ORNAMENTAL IRONWORKER Unavailable [phone] Paloma Lindsay PA-C Unavailable [phone] Kodak Muro-C Unavailable [phone] Kodak Muro PA-C Unavailable [phone] Encounter Details Date Type Department Care Team (Late st Contact Info) Description 01/09/2021 MyC Medical Advice [address] [address] Roc Yi Social History Tobacco [...] PM CDT 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 Gender Identity Female 03/28/2021 1:15 PM CDT Sexual Orientation Straight 03/28/2021 1: 15 PM CDT documented as of this encounter Plan of Treatment Not on file documented as of this encounter Visit Diagnoses Not on filedocumented in this encounter Care Teams Production Designer Relationship Specialty Start Date End Date Kodak Muro PA-C PCP - General Physician Disability Rater - Medical 02/20/16 Kodak Muro PA-C [address]3085 [place] [address] Assigned PCP 02/14/20 02/11/21 Sobia Sahu APRN CNP 44300 [place] [address] Assigned PCP 02/12/21 02/10/22 Paloma Lindsay PA-C [address] [place] [address] Assigned Surgical Provider 04/02/21 09/28/22 Kodak Muro PA-C 33061 [place] [address] Assigned PCP 02/11/22 10/05/22 Kodak Muro PA-C 87537 [address] [address] Assigned PCP 12/15/22 02/10/23 documented as of this encounter
--- OUTSIDE RECORDS SUMMARY | 2025-04-17 00:30 | XMS_ITS | Encounter Summary ---
Author Organization [facility] Address [address] [place] [address] Care Team Providers Care Roll Wrapper Name Role Phone Kodak Muro PA-C Primary Care Provider [phone] Sobia Sahu APRN VERSE WRITER Unavailable [phone] Kodak MuroC Unavailable [phone] Sobia Sahu APRN VERSE WRITER Unavailable [phone] Paloma Lindsay PA-C Unavailable [phone] Kodak Muro-C Unavailable [phone] Kodak Muro PA-C Unavailable [phone] Encounter Details Date Type Department Care Team (Late st Contact Info) Description 02/01/2020 MyC Medical Advice [address] [address] Shivani Fine APRN VERSE WRITER [address] [place] [address] Social History Tobacco Use Types Packs/Day Years [...] PM CDT 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 Gender Identity Female 03/28/2021 1:15 PM CDT Sexual Orientation Straight 03/28/2021 1: 15 PM CDT documented as of this encounter Plan of Treatment Not on file documented as of this encounter Visit Diagnoses Not on filedocumented in this encounter Care Teams Roll Wrapper Relationship Specialty Start Date End Date Kodak Muro PA-C PCP - General Physician Peoplesoft Hcm Consultant - Medical 02/20/16 Sobia Sahu APRN VERSE WRITER [address]80 [place] [id number] Assigned PCP 02/15/19 02/13/20 Kodak Muro PA-C 95176 [place] [id number] Assigned PCP 02/14/20 02/11/21 Sobia Sahu APRN VERSE WRITER 99977 [place] [id number] Assigned PCP 02/12/21 02/10/22 Paloma Lindsay PA-C [address] [place] [address] Assigned Surgical Provider 04/02/21 09/28/22 Kodak Muro PA-C 29712 [place] [id number] Assigned PCP 02/11/22 10/05/22 Kodak Muro PA-C 76976 [address] [address] [id number] Assigned PCP 12/15/22 02/10/23 documented as of this encounter
== END 2025-04-16 07:58 | disposition home or self-care (01) ==
LOC: US 07:57
PROVIDERS: PCP Physician Assistant Medical; Visit Provider Physician Assistant Medical
DX: N63.20 Unspecified lump in the left breast, unspecified quadrant (principal); R92.8 Other abnormal and inconclusive findings on diagnostic imaging of breast
CPT/HCPCS: 76642

== ENCOUNTER 2025-10-12 09:30 | Outpatient (CLI) | payer OTHER, SELFPAY | END 2025-10-12 09:31 | disposition home or self-care (01) | LOC: NFLDREF 10-18 06:02 | PROVIDERS: PCP Physician Assistant Medical; Referring Provider Physician Assistant Medical; Visit Provider Physician Assistant Medical | DX: Z00.00 Encounter for general adult medical examination without abnormal findings (principal); E11.9 Type 2 diabetes mellitus without complications | CPT/HCPCS: 80053; 80061; 82043; 82570; 82607; 84443 ==

== ENCOUNTER 2025-10-15 13:29 | Outpatient (CLI) | payer OTHER, SELFPAY ==
[2025-10-15 22:56] LABS: Chlamydia DNA Amplified* NOT DETECTED (No Detected); GC DNA Amplified* NOT DETECTED (No Detected)
[2025-10-17 23:12] LABS: HPV Source Cervix
[2025-10-20 13:07] LABS: Pap Test Digital Imaging Done; Pap Test Reviewed by Pathologi Done
== END 2025-10-15 13:30 | disposition home or self-care (01) ==
PROVIDERS: PCP Physician Assistant Medical; Visit Provider Physician Assistant Medical
DX: Z00.00 Encounter for general adult medical examination without abnormal findings (principal)
CPT/HCPCS: 87491; 87591; 87624; 87625; 88141; 88142; 88175